=== PATIENT | male | born 1980 | race African-American/Black ===

== ENCOUNTER 2022-04-03 12:09 | Inpatient (IN) | payer BC ==
[2022-04-03] MEDS ORDERED: Nitroglycerin 2% Ointment 1 INCH/1 GM Packet ONE (12:25)
[2022-04-03] MEDS ORDERED: hydrALAZINE 20 MG/ML VIAL ONE (12:27)
[2022-04-03 12:54] LABS: Bacteria/HPF None Seen HPF (None Seen); Bilirubin Negative (Negative); Blood, Urine 3+ (Negative); Clarity Cloudy (Clear); Glucose, Urine (Dipstick) 30 mg/dL (Negative); Ketone, Urine Negative (Negative); Leukocyte Negative Leu/uL (Negative); Nitrite Negative (Negative); Protein, Urine (Dipstick) 100 mg/dL (Neg-Trace); RBC/HPF Greater than 50 HPF (0-3); Specific Gravity, Urine 1.008 (1.002-1.036); Squamous Epithelial None Seen HPF (0-3); Urobilinogen Normal mg/dL (Less than 2); WBC/HPF 0-3 HPF (0-3); pH, Urine 7.5 (5.0-9.0)
[2022-04-03 13:02] LABS: #Lymphocytes 1.1 thou/uL (1.20-3.40); #Monocytes 0.4 thou/uL (0.11-0.59); #Neutrophils 8.5 thou/uL (1.40-6.50); %Basophils 0.2 % (0.0-1.0); %Eosinophils 0.1 % (0.0-10.0); %Lymphocytes 10.7 % (21.0-51.0); %Monocytes 3.8 % (0.0-10.0); %Neutrophils 85.2 % (42.0-75.0); Hemoglobin 12.9 g/dL (14.0-18.0); Mean Corpuscular HGB CONC 32.7 g/dL (32.0-36.0); Mean Corpuscular Hemoglobin 25.5 pg (27.0-31.0); Mean Platelet Volume 11.6 fL (7.4-10.4); Platelet Count 160 10x3/uL (130-400); RBC Distribution Width 13.9 % (11.5-14.5); Red Blood Cell (RBC) Count 5.08 mill/uL (4.70-6.10)
[2022-04-03 13:10] LABS: ALT (SGPT) 13 U/L (8-55); AST (SGOT) 24 U/L (5-34); Albumin 3.8 g/dL (3.5-5.0); Alkaline Phosphatase 85 U/L (40-110); Anion Gap 15 mmol/L (10-20); BUN (Urea Nitrogen) 34 mg/dL (8.9-20.6); Bilirubin, Total 1.1 mg/dL (0.2-1.2); Calc. Creatinine Clearance 0 mL/min (70-130); Calcium 8.8 mg/dL (7.8-10.44); Carbon Dioxide 23 mmol/L (22-29); Chloride 100 mmol/L (98-107); Estimated GFR 15; Globulin 4.2 g/dL (2.4-3.5); Glucose 120 mg/dL (70-105); Lipase 23 U/L (8-78); Magnesium 2.1 mg/dL (1.6-2.6); Potassium 3.1 mmol/L (3.5-5.1); Sodium 135 mmol/L (136-145)
[2022-04-03 13:31] LABS: CKMB 2.2 ng/mL (0-6.6)
[2022-04-03] MEDS ORDERED: Acetaminophen 325 MG TAB PO PRN (16:32)
[2022-04-03] MEDS ORDERED: hydrALAZINE 20 MG/ML VIAL SLOW IVP PRN (16:41)
[2022-04-03 17:00] VITALS: BMI 32.8
[2022-04-03 17:24] LABS: Magnesium 2.1 mg/dL (1.6-2.6)
[2022-04-03 17:25] LABS: Cardiac Risk 6.1 (Less than 4.5)
[2022-04-03 17:28] LABS: Troponin I 0.161 ng/mL (< 0.028)
[2022-04-03] MEDS ORDERED: Labetalol HCl 100 MG/20 ML VIAL SLOW IVP PRN (17:44)
[2022-04-03] MEDS ORDERED: Potassium Chloride 20 MEQ TAB PO SCH (18:30)
[2022-04-03] MEDS: Heparin 5,000 UNITS/ML VIAL SC SCH (20:22)
[2022-04-03] MEDS: Labetalol HCl 100 MG/20 ML VIAL SLOW IVP PRN (22:07)
[2022-04-03 22:16] LABS: Troponin I 0.284 ng/mL (< 0.028)
[2022-04-03 22:35] LABS: Bacteria/HPF None Seen HPF (None Seen); Bilirubin Negative (Negative); Blood, Urine 3+ (Negative); Clarity Turbid (Clear); Glucose, Urine (Dipstick) Normal (Negative); Ketone, Urine Trace mg/dL (Negative); Leukocyte 25 Leu/uL (Negative); Nitrite Negative (Negative); Protein, Urine (Dipstick) 200 mg/dL (Neg-Trace); RBC/HPF Greater than 50 HPF (0-3); Specific Gravity, Urine 1.017 (1.002-1.036); Squamous Epithelial None Seen HPF (0-3); Urobilinogen Normal mg/dL (Less than 2); WBC/HPF 0-3 HPF (0-3)
[2022-04-03 22:37] LABS: Urine Culture Reflex Yes Yes
[2022-04-03 22:55] LABS: Creatinine, Urine 166.72 mg/dL (63-166)
[2022-04-04 03:44] LABS: #Basophils 0.1 thou/uL (0.0-0.2); #Lymphocytes 1.9 thou/uL (1.20-3.40); #Monocytes 0.9 thou/uL (0.11-0.59); #Neutrophils 7.8 thou/uL (1.40-6.50); %Basophils 0.5 % (0.0-1.0); %Eosinophils 0.1 % (0.0-10.0); %Lymphocytes 18.2 % (21.0-51.0); %Neutrophils 73.1 % (42.0-75.0); Hemoglobin 12.4 g/dL (14.0-18.0); Mean Corpuscular HGB CONC 31.9 g/dL (32.0-36.0); Mean Corpuscular Hemoglobin 25.2 pg (27.0-31.0); Mean Corpuscular Volume 78.9 fl (78.0-98.0); Platelet Count 167 10x3/uL (130-400); RBC Distribution Width 14.3 % (11.5-14.5); Red Blood Cell (RBC) Count 4.94 mill/uL (4.70-6.10); White Blood Cell (WBC) Count 10.6 10x3/uL (4.8-10.8)
[2022-04-04 03:51] LABS: Hemoglobin A1c 5.4 % (4.0-6.0)
[2022-04-04 04:06] LABS: ALT (SGPT) 13 U/L (8-55); AST (SGOT) 22 U/L (5-34); Albumin 3.7 g/dL (3.5-5.0); Alkaline Phosphatase 76 U/L (40-110); Anion Gap 16 mmol/L (10-20); BUN (Urea Nitrogen) 37 mg/dL (8.9-20.6); Calc. Creatinine Clearance 24 mL/min (70-130); Carbon Dioxide 23 mmol/L (22-29); Chloride 102 mmol/L (98-107); Estimated GFR 14; Glucose 106 mg/dL (70-105); Potassium 3.5 mmol/L (3.5-5.1); Protein, Total 7.7 g/dL (6.0-8.3); Sodium 137 mmol/L (136-145)
[2022-04-04 04:14] LABS: Phosphorus 4.9 mg/dL (2.3-4.7)
[2022-04-04 07:19] LABS: Troponin I 0.906 ng/mL (< 0.028)
[2022-04-04 08:00] LABS: Amphetamine Not Detected (NotDetected); Barbiturates Screen Not Detected (NotDetected); Benzodiazepine Screen Not Detected (NotDetected); Cocaine Metabolite Screen Not Detected (NotDetected); Methadone Not Detected (NotDetected); Methamphetamine Not Detected (NotDetected); Opiate Screen Not Detected (NotDetected); Oxycodone Screen Not Detected (NotDetected); Phencyclidine (PCP) Not Detected (NotDetected); THC/Cannabinoid Screen Not Detected (NotDetected); Tricyclic Screen Not Detected (NotDetected)
[2022-04-04] MEDS: Heparin 5,000 UNITS/ML VIAL SC SCH ×3 (08:12→20:03)
[2022-04-04] MEDS: Labetalol HCl 100 MG/20 ML VIAL SLOW IVP PRN (08:13)
[2022-04-04] MEDS: NIFEdipine XL 30 MG TAB PO SCH (09:09)
[2022-04-04 11:23] LABS: Critical Call Chem Troponin I RESULT DECREASING; Troponin I 0.853 ng/mL (< 0.028)
[2022-04-04 14:36] LABS: Critical Call Chem Troponin I RESULT DECREASING; Troponin I 0.771 ng/mL (< 0.028)
[2022-04-04] MEDS: Carvedilol 6.25 MG TAB PO SCH (16:25)
[2022-04-04] MEDS: hydrALAZINE 20 MG/ML VIAL SLOW IVP PRN ×2 (16:26→23:33)
[2022-04-04] MEDS ORDERED: Carvedilol 6.25 MG TAB PO SCH (17:00)
[2022-04-04] MEDS ORDERED: Loratadine 10 MG TAB PO SCH (20:00)
[2022-04-04] MEDS: Atorvastatin Calcium 40 MG TAB PO SCH (20:03)
[2022-04-04] MEDS: Fluticasone Propionate Nasal Spray 16 gm Bottle NASAL SCH (20:03)
[2022-04-05] MEDS: hydrALAZINE 20 MG/ML VIAL SLOW IVP PRN (03:18)
[2022-04-05 03:46] LABS: #Eosinphils 0.1 thou/uL (0.0-0.7); #Lymphocytes 2.3 thou/uL (1.20-3.40); #Monocytes 0.8 thou/uL (0.11-0.59); #Neutrophils 7.4 thou/uL (1.40-6.50); %Basophils 0.4 % (0.0-1.0); %Eosinophils 0.6 % (0.0-10.0); %Lymphocytes 21.4 % (21.0-51.0); %Monocytes 7.5 % (0.0-10.0); %Neutrophils 70.1 % (42.0-75.0); Hemoglobin 12.3 g/dL (14.0-18.0); Mean Corpuscular HGB CONC 32.8 g/dL (32.0-36.0); Mean Corpuscular Hemoglobin 25.6 pg (27.0-31.0); Mean Corpuscular Volume 77.9 fl (78.0-98.0); Mean Platelet Volume 11.1 fL (7.4-10.4); Platelet Count 171 10x3/uL (130-400); RBC Distribution Width 14.2 % (11.5-14.5); White Blood Cell (WBC) Count 10.6 10x3/uL (4.8-10.8)
[2022-04-05 04:06] LABS: Phosphorus 4.2 mg/dL (2.3-4.7)
[2022-04-05] MEDS: Labetalol HCl 100 MG/20 ML VIAL SLOW IVP PRN (04:10)
[2022-04-05 04:16] LABS: ALT (SGPT) 12 U/L (8-55); AST (SGOT) 22 U/L (5-34); Albumin 3.7 g/dL (3.5-5.0); Alkaline Phosphatase 77 U/L (40-110); Anion Gap 14 mmol/L (10-20); BUN (Urea Nitrogen) 40 mg/dL (8.9-20.6); Bilirubin, Total 1.3 mg/dL (0.2-1.2); Calc. Creatinine Clearance 25 mL/min (70-130); Carbon Dioxide 22 mmol/L (22-29); Chloride 98 mmol/L (98-107); Estimated GFR 14; Globulin 4.1 g/dL (2.4-3.5); Glucose 100 mg/dL (70-105); Potassium 3.1 mmol/L (3.5-5.1); Protein, Total 7.8 g/dL (6.0-8.3); Sodium 131 mmol/L (136-145)
[2022-04-05] MEDS: Carvedilol 6.25 MG TAB PO SCH (07:55)
[2022-04-05] MEDS: NIFEdipine XL 30 MG TAB PO SCH (07:55)
[2022-04-05] MEDS: Heparin 5,000 UNITS/ML VIAL SC SCH ×3 (07:56→20:51)
[2022-04-05] MEDS: Loratadine 10 MG TAB PO SCH (07:56)
[2022-04-05] MEDS ORDERED: Potassium Chloride 20 MEQ TAB PO SCH (09:00)
[2022-04-05] MEDS ORDERED: Pantoprazole 40 MG VIAL IVP SCH (09:00)
[2022-04-05] MEDS ORDERED: NIFEdipine XL 30 MG TAB PO SCH (09:15)
[2022-04-05] MEDS ORDERED: Carvedilol 6.25 MG TAB PO SCH ×2 (09:15)
[2022-04-05] MEDS: Carvedilol 25 MG TAB PO SCH (16:12)
[2022-04-05] MEDS: Atorvastatin Calcium 40 MG TAB PO SCH (20:49)
[2022-04-05] MEDS: NIFEdipine XL 60 MG TAB PO SCH (20:49)
[2022-04-05] MEDS: Fluticasone Propionate Nasal Spray 16 gm Bottle NASAL SCH (20:50)
[2022-04-05 20:58] VITALS: BP 152/99
[2022-04-06 03:09] LABS: #Basophils 0.1 thou/uL (0.0-0.2); #Eosinphils 0.1 thou/uL (0.0-0.7); #Lymphocytes 2.6 thou/uL (1.20-3.40); #Monocytes 0.9 thou/uL (0.11-0.59); #Neutrophils 7.6 thou/uL (1.40-6.50); %Basophils 0.6 % (0.0-1.0); %Eosinophils 0.7 % (0.0-10.0); %Lymphocytes 22.7 % (21.0-51.0); %Monocytes 8.1 % (0.0-10.0); %Neutrophils 67.8 % (42.0-75.0); Hemoglobin 12.5 g/dL (14.0-18.0); Mean Corpuscular HGB CONC 32.7 g/dL (32.0-36.0); Mean Corpuscular Hemoglobin 25.5 pg (27.0-31.0); Platelet Count 168 10x3/uL (130-400); RBC Distribution Width 14.1 % (11.5-14.5); White Blood Cell (WBC) Count 11.2 10x3/uL (4.8-10.8)
[2022-04-06 03:24] LABS: ALT (SGPT) 14 U/L (8-55); AST (SGOT) 21 U/L (5-34); Albumin 3.8 g/dL (3.5-5.0); Alkaline Phosphatase 76 U/L (40-110); Anion Gap 14 mmol/L (10-20); BUN (Urea Nitrogen) 46 mg/dL (8.9-20.6); Bilirubin, Total 0.7 mg/dL (0.2-1.2); Calc. Creatinine Clearance 24 mL/min (70-130); Calcium 9.1 mg/dL (7.8-10.44); Carbon Dioxide 22 mmol/L (22-29); Chloride 100 mmol/L (98-107); Estimated GFR 14; Glucose 103 mg/dL (70-105); Phosphorus 3.8 mg/dL (2.3-4.7); Potassium 3.4 mmol/L (3.5-5.1); Protein, Total 7.8 g/dL (6.0-8.3); Sodium 133 mmol/L (136-145)
[2022-04-06 03:55] VITALS: TEMP 98.7
[2022-04-06] MEDS: NIFEdipine XL 60 MG TAB PO SCH (07:44)
[2022-04-06] MEDS: Carvedilol 25 MG TAB PO SCH (07:45)
[2022-04-06] MEDS: Loratadine 10 MG TAB PO SCH (07:45)
[2022-04-06] MEDS: Heparin 5,000 UNITS/ML VIAL SC SCH (07:47)
[2022-04-06] MEDS ORDERED: Potassium Chloride 20 MEQ TAB PO SCH (08:00)
[2022-04-06] MEDS ORDERED: NIFEdipine XL 60 MG TAB PO SCH (09:00)
[2022-04-07 16:29] LABS: ANA Symphony (Qualitative) Negative (Negative); ANA Symphony (Quantitative) 0.4 Ratio (< 0.7 Negative); dsDNA IgG Antibody 2.3 IU/mL (<10 Negative)
[2022-04-08 12:13] LABS: Kappa Lambda Light Chain Ratio 2.25 (0.26-1.65); Kappa Light Chains 118.1 mg/L (3.3-19.4); Lambda Light Chain 52.4 mg/L (5.7-26.3)
[2022-04-08 19:37] LABS: Cytoplasmic (C-ANCA) <1:20 titer (Neg:<1:20); Glomerular Basmt Membrane ABS Less than 0.2 units (0.0-0.9); Myeloperoxidase AutoAbs <0.2 units (0.0-0.9); Perinuclear (P-ANCA) <1:20 titer (Neg:<1:20); Proteinase-3 AutoAbs Less than 0.2 units (0.0-0.9)
[2022-04-11] MEDS ORDERED: Ergocalciferol 1.25 MG(50,000 UNITS) CAP PO SCH (09:00)
== END 2022-04-06 16:08 | disposition home or self-care (01) | DRG 281 ==
LOC: ERS 12:09 → IMCU/EMU 15:16
PROVIDERS: ADMIT Family Medicine; ATTEND Family Medicine
DX: I16.1 Hypertensive emergency (principal); I21.A1 Myocardial infarction type 2; E87.1 Hypo-osmolality and hyponatremia; N17.9 Acute kidney failure, unspecified; N18.4 Chronic kidney disease, stage 4 (severe); N25.81 Secondary hyperparathyroidism of renal origin; I50.32 Chronic diastolic (congestive) heart failure; I27.20 Pulmonary hypertension, unspecified; I13.0 Hypertensive heart and chronic kidney disease with heart failure and stage 1 through stage 4 chronic kidney disease, or unspecified chronic kidney disease; Z20.822 Contact with and (suspected) exposure to COVID-19; F17.210 Nicotine dependence, cigarettes, uncomplicated; E87.6 Hypokalemia; E88.09 Other disorders of plasma-protein metabolism, not elsewhere classified; E66.9 Obesity, unspecified; R31.29 Other microscopic hematuria; E55.9 Vitamin D deficiency, unspecified; I12.9 Hypertensive chronic kidney disease with stage 1 through stage 4 chronic kidney disease, or unspecified chronic kidney disease; Z91.013 Allergy to seafood; Z82.49 Family history of ischemic heart disease and other diseases of the circulatory system; Z68.32 Body mass index [BMI] 32.0-32.9, adult
CPT/HCPCS: 36415; 70450; 71045; 76770; 80053; 80061; 80306; 81003; 81015; 82088; 82306; 82553; 82570; 83036; 83516; 83690; 83735; 83880; 83883; 83970; 84100; 84156; 84244; 84300; 84484; 85025; 86037; 86038; 86225; 87086; 93005; 93306; 93975; J0360; J1644; U0003; U0005